=== PATIENT | male | born 1970 | race Caucasian/White ===

== ENCOUNTER 2019-06-09 13:45 | Emergency (ER) | payer MEDICAID ==
[~2019-06-09] VITALS: Ht 172.7 cm; Wt 62.0 kg
[2019-06-09] MEDS ORDERED: buprenorphine/naloxone 2-0.5mg sublingual tablet SL ONE (14:55)
[2019-06-09] MEDS ORDERED: ibuprofen tablet 400 MG TABLET PO ONE (15:15)
[2019-06-09] MEDS ORDERED: DOXYCYCLINE 100MG CAPSULE PO STA (15:15)
[2019-06-09] MEDS ORDERED: DOXY100C43 PO (15:56)
[2019-06-09 17:22] VITALS: BP 118/69
[2019-06-09] MEDS ORDERED: buprenorphine/naloxone 8MG-2MG SUBlingual film SL STA (17:26)
== END 2019-06-09 17:57 | disposition home or self-care (01) ==
LOC: ER 13:46
DX: L03.113 Cellulitis of right upper limb (principal); F11.23 Opioid dependence with withdrawal; R42 Dizziness and giddiness; Z79.899 Other long term (current) drug therapy
CPT/HCPCS: 99284

== ENCOUNTER 2019-06-10 20:22 | Emergency (ER) | payer MEDICAID ==
[~2019-06-10] VITALS: Ht 172.7 cm; Wt 68.2 kg
[~2019-06-10 20:22] MED LIST: DOXY100C43 PO
[2019-06-10 20:27] VITALS: BP 112/72
[2019-06-10] MEDS ORDERED: buprenorphine/naloxone 8MG-2MG SUBlingual film SL SCH (20:50)
== END 2019-06-10 21:23 | disposition home or self-care (01) ==
LOC: ER 20:23
DX: F11.23 Opioid dependence with withdrawal (principal); Z79.899 Other long term (current) drug therapy
CPT/HCPCS: 99283

== ENCOUNTER 2019-08-23 15:27 | Emergency (ER) | payer MEDICAID ==
[~2019-08-23] VITALS: Ht 177.8 cm; Wt 59.1 kg
[2019-08-23 16:10] LABS: BASOPHILS # (AUTO) 0.1 X10'3 (0-0.2); BASOPHILS % (AUTO) 0.5 % (0-1); EOSINOPHILS % (AUTO) 0.3 % (0-6); HEMATOCRIT 38.3 % (42.0-52.0); HEMOGLOBIN 12.9 g/dl (14.0-17.9); LYMPHOCYTES # (AUTO) 1.4 X10'3 (1.1-4.8); LYMPHOCYTES % (AUTO) 10.4 % (21-51); MEAN CORPUSCULAR HEMOGLOBIN 28.5 PG (27.0-31.0); MEAN CORPUSCULAR HGB CONC 33.8 g/dL (33.0-36.5); MEAN CORPUSCULAR VOLUME 84.5 FL (78-98); MEAN PLATELET VOLUME 6.6 FL (7.4-10.4); MONOCYTES # (AUTO) 0.7 X10'3 (0-0.9); MONOCYTES % (AUTO) 5.6 % (2-12); NEUTROPHILS # (AUTO) 10.9 X10'3 (1.8-7.7); NEUTROPHILS % (AUTO) 83.2 % (42-75); PLATELET COUNT 302 X10'3 (140-440); RED BLOOD COUNT 4.53 X10'6 (4.70-6.10); RED CELL DISTRIBUTION WIDTH 13.3 % (11.5-14.5); WHITE BLOOD COUNT 13.1 X10'3 (4.5-11.0)
[2019-08-23 16:27] LABS: ALANINE AMINOTRANSFERASE 29 U/L (12-78); ALBUMIN/GLOBULIN RATIO 0.8 (1.1-1.5); ALKALINE PHOSPHATASE 81 IU/L (46-116); ANION GAP 7 (8-16); ASPARTATE AMINO TRANSFERASE 33 U/L (10-37); BILIRUBIN,TOTAL 0.6 MG/DL (0.1-1.0); BLOOD UREA NITROGEN 12 MG/DL (7-18); BUN/CREATININE RATIO 17.6 (5.4-32.0); CALCIUM 8.4 MG/DL (8.5-10.1); CHLORIDE 100 MMOL/L (99-107); CREATININE 0.68 MG/DL (0.60-1.10); GLUCOSE 131 MG/DL (70-104); LIPASE 60 U/L (73-393); POTASSIUM 3.3 MMOL/L (3.5-5.1); SODIUM 137 MMOL/L (135-145); TOTAL CARBON DIOXIDE 30.2 MMOL/L (24-32); TOTAL PROTEIN 6.6 G/DL (6.4-8.2); eGFR > 90 ML/MIN
--- NOTE | 2019-08-23 16:49 | NUR ---
unable to void at this time.
[2019-08-23] MEDS ORDERED: sulfamethoxazole/trimethoprim DS (800/160mg) tablet PO ONE (18:10)
[2019-08-23] MEDS ORDERED: ondansetron 4mg rapidly disintigrating tab PO ONE (18:10)
[2019-08-23] MEDS ORDERED: cephalexin 250mg capsule PO ONE (18:10)
[2019-08-23] MEDS ORDERED: CEPH500C5 PO (18:16)
[2019-08-23] MEDS ORDERED: SULF1TAB49 PO (18:16)
[2019-08-23 18:29] LABS: CLARITY,URINE CLEAR (Clear); COLOR,URINE YELLOW (Yellow); GLUCOSE, URINE NEGATIVE (Neg); KETONES,URINE 15 mg/dl (Neg); LEUKOCYTE ESTERASE ,URINE NEGATIVE (Neg); NITRITES, URINE NEGATIVE (Neg); OCCULT BLOOD,URINE NEGATIVE (Neg); PH,URINE 6.5 (4.8-8.0); PROTEIN,URINE NEGATIVE (Neg)
[2019-08-23] MEDS ORDERED: potassium Cl 20 mEq SR tablet PO ONE (18:30)
[2019-08-23 18:32] LABS: UA COLLECTION TYPE CLN CATCH MIDSTREAM
[2019-08-23 18:33] VITALS: BP 103/74
== END 2019-08-23 18:35 | disposition home or self-care (01) ==
LOC: ER 15:27
DX: L02.413 Cutaneous abscess of right upper limb (principal); F17.200 Nicotine dependence, unspecified, uncomplicated
CPT/HCPCS: 36415; 80053; 81003; 83690; 85025; 99284

== ENCOUNTER 2020-11-07 20:41 | Emergency (ER) | payer MEDICAID ==
[~2020-11-07] VITALS: Ht 175.3 cm; Wt 65.9 kg
[2020-11-07] MEDS ORDERED: PENI250T2 PO (22:49)
[2020-11-07] MEDS ORDERED: NAPR-56 PO (22:49)
[2020-11-07] MEDS ORDERED: HYDROcodone/acetaminophen 5mg/325mg tablet PO ONE (22:50)
[2020-11-07] MEDS ORDERED: penicillin V potassium 500mg tablet PO STA (23:04)
[2020-11-07 23:19] VITALS: BP 120/87
== END 2020-11-07 23:21 | disposition home or self-care (01) ==
LOC: ER 20:41
DX: K04.7 Periapical abscess without sinus (principal); F11.90 Opioid use, unspecified, uncomplicated
CPT/HCPCS: 99283

== ENCOUNTER → 2021-03-11 | Emergency (ER) | payer MEDICAID ==
[~2021-03-11] VITALS: Ht 172.7 cm; Wt 63.6 kg
[~2021-03-11] MED LIST changes: +AMOX500C2 PO; -DOXY100C43 PO; +acetaminophen 325mg tablet PO ONE; +amoxicillin 250mg capsule PO ONE; +ibuprofen tablet 400 MG TABLET PO ONE; +ondansetron 4mg rapidly disintigrating tab PO ONE
[2021-03-11 03:27] VITALS: BP 116/76
== END | disposition home or self-care (01) ==
LOC: ER 03:22
DX: K04.7 Periapical abscess without sinus (principal); L03.114 Cellulitis of left upper limb; R22.0 Localized swelling, mass and lump, head; F11.90 Opioid use, unspecified, uncomplicated; Z79.2 Long term (current) use of antibiotics
CPT/HCPCS: 64400; 99284

== ENCOUNTER 2021-09-13 17:55 | Emergency (ER) | payer MEDICAID ==
[~2021-09-13] VITALS: Ht 172.7 cm; Wt 43.7 kg
[2021-09-13 18:47] VITALS: BP 105/74
== END 2021-09-13 22:34 | disposition left against medical advice (07) ==
LOC: ER 17:55
DX: L02.512 Cutaneous abscess of left hand (principal); Z53.21 Procedure and treatment not carried out due to patient leaving prior to being seen by health care provider

== ENCOUNTER 2021-10-22 09:16 | Emergency (ER) | payer MEDICAID ==
[~2021-10-22] VITALS: Ht 172.7 cm; Wt 63.6 kg
[2021-10-22 09:39] VITALS: BP 126/85
[2021-10-22] MEDS ORDERED: PENI500T2 PO (11:10)
[2021-10-22] MEDS ORDERED: ACET-3068 PO (11:10)
[2021-10-22] MEDS ORDERED: pantoprazole 40mg Tablet.DR PO SCH (11:15)
[2021-10-22] MEDS ORDERED: acetaminophen 325mg tablet PO ONE (11:15)
[2021-10-22] MEDS ORDERED: ibuprofen 200mg tablet PO ONE (11:15)
== END 2021-10-22 11:24 | disposition home or self-care (01) ==
LOC: ER 09:17
DX: K04.7 Periapical abscess without sinus (principal); F17.200 Nicotine dependence, unspecified, uncomplicated; Z79.899 Other long term (current) drug therapy
CPT/HCPCS: 99284

== ENCOUNTER 2021-12-27 15:52 | Emergency (ER) | payer MEDICAID ==
[~2021-12-27] VITALS: Ht 175.3 cm; Wt 63.6 kg
[2021-12-27 15:58] VITALS: BP 104/67
[2021-12-27] MEDS ORDERED: PENI250T2 PO (16:36)
[2021-12-27] MEDS ORDERED: NAPR-56 PO (16:36)
--- NOTE | 2021-12-27 17:19 | NUR ---
DENTAL PROVIDERS INFO GIVEN
== END 2021-12-27 17:20 | disposition home or self-care (01) ==
LOC: ER 15:53
DX: K02.9 Dental caries, unspecified (principal)
CPT/HCPCS: 99283

== ENCOUNTER 2022-01-01 16:28 | Emergency (ER) | payer MEDICAID ==
[~2022-01-01] VITALS: Ht 175.3 cm; Wt 63.6 kg
[~2022-01-01 16:28] MED LIST changes: -AMOX500C2 PO; +NAPR-56 PO; +PENI250T2 PO; -acetaminophen 325mg tablet PO ONE; -amoxicillin 250mg capsule PO ONE; -ibuprofen tablet 400 MG TABLET PO ONE; -ondansetron 4mg rapidly disintigrating tab PO ONE
[2022-01-01 16:34] VITALS: BP 110/72
[2022-01-01] MEDS ORDERED: normal saline 1000ml 1,000 ML IV ONE (16:55)
[2022-01-01] MEDS ORDERED: clindamycin 600mg/D5W 50ml 50 ML IV ONE (16:55)
[2022-01-01] MEDS ORDERED: methylPREDNISolone sod succ 125mg/2ml vial IV ONE (16:55)
[2022-01-01] MEDS ORDERED: CLIN300C54 PO ×2 (19:24)
== END 2022-01-01 20:37 | disposition home or self-care (01) ==
LOC: ER 16:29
DX: K04.7 Periapical abscess without sinus (principal); K08.89 Other specified disorders of teeth and supporting structures
CPT/HCPCS: 96365; 96375; 99284; J2930; J3490; J7030

== ENCOUNTER 2022-01-03 11:57 | Emergency (ER) | payer MEDICAID ==
[~2022-01-03] VITALS: Ht 175.3 cm; Wt 63.6 kg
[~2022-01-03 11:57] MED LIST changes: +CLIN300C54 PO
[2022-01-03] MEDS ORDERED: morphine 4 MG/ML inj SYRINge IM ONE (14:20)
[2022-01-03] MEDS ORDERED: normal saline 1000ML IV soln IV ONE (14:30)
[2022-01-03] MEDS ORDERED: morphine 2 MG/ML inj. syringe IV ONE ×3 (14:46→18:05)
[2022-01-03] MEDS ORDERED: iohexol 300mg/ml 100ml inj. ONE (15:14)
[2022-01-03 15:55] LABS: BASOPHILS % (AUTO) 0.1 % (0-1); EOSINOPHILS % (AUTO) 0.2 % (0-6); HEMOGLOBIN 12.3 g/dl (14.0-17.9); LYMPHOCYTES # (AUTO) 1.2 X10'3 (1.1-4.8); LYMPHOCYTES % (AUTO) 10.7 % (21-51); MEAN CORPUSCULAR HEMOGLOBIN 28.9 PG (27.0-31.0); MEAN CORPUSCULAR HGB CONC 33.3 g/dL (33.0-36.5); MEAN PLATELET VOLUME 6.4 FL (7.4-10.4); MONOCYTES # (AUTO) 0.9 X10'3 (0-0.9); MONOCYTES % (AUTO) 7.6 % (2-12); NEUTROPHILS # (AUTO) 9.1 X10'3 (1.8-7.7); NEUTROPHILS % (AUTO) 81.4 % (42-75); PLATELET COUNT 284 X10'3 (140-440); RED BLOOD COUNT 4.25 X10'6 (4.70-6.10); RED CELL DISTRIBUTION WIDTH 13.8 % (11.5-14.5); WHITE BLOOD COUNT 11.2 X10'3 (4.5-11.0)
[2022-01-03] MEDS ORDERED: ampicillin/sulbac 3gm/NS 100ml 100 ML IV ONE (16:00)
[2022-01-03 16:10] LABS: ALANINE AMINOTRANSFERASE 26 U/L (12-78); ALBUMIN 3.5 G/DL (3.4-5.0); ALKALINE PHOSPHATASE 72 IU/L (46-116); ANION GAP 3 (8-16); ASPARTATE AMINO TRANSFERASE 14 U/L (10-37); BILIRUBIN,TOTAL 0.5 MG/DL (0.1-1.0); BLOOD UREA NITROGEN 17 MG/DL (7-18); BUN/CREATININE RATIO 28.3 (5.4-32.0); CHLORIDE 101 MMOL/L (99-107); GLUCOSE 92 MG/DL (70-104); SODIUM 137 MMOL/L (135-145); TOTAL CARBON DIOXIDE 32.7 MMOL/L (24-32); TOTAL PROTEIN 6.9 G/DL (6.4-8.2); eGFR > 90 ML/MIN
[2022-01-03] MEDS ORDERED: morphine 4 MG/ML inj SYRINge IV ONE (16:20)
--- NOTE | 2022-01-03 18:15 | NUR ---
ANTHONY FROM [facility] FOR INFORMATION ABOUT PATIENT.
--- NOTE | 2022-01-03 18:55 | NUR ---
call pts mom with any info. Elysia Knight [phone]
[2022-01-03] MEDS ORDERED: ampicillin/sulbac 3gm/NS 100ml 100 ML IV SCH ×2 (20:00→22:00)
[2022-01-03] MEDS ORDERED: NO HOME MEDS (20:10)
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
[2022-01-03] MEDS ORDERED: vancomycin/NS 1 GM ADD-VANTAGE 250 ML IV ONE (22:40)
[2022-01-04] MEDS ORDERED: ampicillin/sulbac 3gm/NS 100ml 100 ML IV SCH ×2 (03:17→03:26)
[2022-01-04] MEDS ORDERED: dexamethasone sod phosphate 10mg/ml inj IV STA (03:19)
[2022-01-04] MEDS ORDERED: morphine 4 MG/ML inj SYRINge IV ONE (03:20)
--- NOTE | 2022-01-04 06:30 | NUR ---
first contact with pt, founs side-lying in bed, asleep. pt easily arousable, mother and pt udpated on poc and pt status. awaiting transfer information. pt reports pain in left face, 8/10. pt in no distress.
--- NOTE | 2022-01-04 07:47 | NUR ---
Mother's contact info, Elysia [phone]
[2022-01-04] MEDS ORDERED: vancomycin/NS 1 GM ADD-VANTAGE 250 ML IV SCH (12:00)
[2022-01-04 14:00] VITALS: BP 125/81
--- NOTE | 2022-01-04 14:30 | NUR ---
TELEPHONE REPORT CALLED TO DIALLO ALFORD AT [facility]. ALL QUESTIONS ANSWERED AT THIS TIME.
== END 2022-01-04 14:30 | disposition short-term general hospital (02) ==
LOC: ER 11:57
DX: K04.7 Periapical abscess without sinus (principal); Z20.822 Contact with and (suspected) exposure to COVID-19; K12.2 Cellulitis and abscess of mouth; Z79.899 Other long term (current) drug therapy
CPT/HCPCS: 36415; 70450; 70491; 80053; 83605; 84145; 85025; 87040; 87811; 96365; 96366; 96367; 96375; 96376; 99285; J0295; J1100; J2270; J3370; J3490; J7030; Q9967

== ENCOUNTER 2022-02-04 14:27 | Emergency (ER) | payer MEDICAID ==
[~2022-02-04 14:27] MED LIST changes: -CLIN300C54 PO; -NAPR-56 PO; +NO HOME MEDS; -PENI250T2 PO
== END 2022-02-04 15:30 | disposition left against medical advice (07) ==
LOC: ER 14:27
DX: K08.89 Other specified disorders of teeth and supporting structures (principal); Z53.21 Procedure and treatment not carried out due to patient leaving prior to being seen by health care provider